=== PATIENT | male | born 1970 | race Caucasian/White ===

== ENCOUNTER 2020-06-28 11:22 | Observation (INO) | payer OTHER ==
[2020-06-28] MEDS ORDERED: ASPIRIN 81 MG PO STA (11:49)
--- NOTE | 2020-06-28 11:52 | ED ---
General Adult HPI - General Chief complaint: Chest Pain Stated complaint: Chest Pain Time Seen by Provider: 06/28/20 11:38 Source: patient, RN notes reviewed Mode of arrival: EMS Limitations: no limitations - History of Present Illness Initial comments: Patient is a pleasant 50-year-old male presenting to the emergency Department with complaints of chest discomfort. Incident occurred prior to arrival at around 15 minutes. Discomfort felt like pressure or sharp with some radiation from left sternal the right sternal. No back involvement. No associated dyspnea, nausea, or diaphoresis. Patient does have history of cocaine abuse and recently relapsed. Patient is currently in rehab and last used was around a week or more ago. Patient does have history of similar chest discomfort previously approximately 3 or 4 times however has never been evaluated for - Related Data Home Medications Medication Instructions Recorded Confirmed Acetaminophen [Tylenol 8 Hour] 650 mg PO Q4H PRN MDD 6 TABS 06/28/20 06/28/20 Calcium/Mag/Zinc 2 tab PO TID PRN 06/28/20 06/28/20 Chlorpheniramine Maleate 4 mg PO Q4H PRN 06/28/20 06/28/20 [Chlor-Trimeton] Famotidine [Pepcid] 20 mg PO DAILY@0600 06/28/20 06/28/20 Ibuprofen [Motrin] 600 mg PO Q6H PRN 06/28/20 06/28/20 Levothyroxine Sodium [Synthroid] 125 mcg PO DAILY@0600 06/28/20 06/28/20 Mirtazapine [Remeron] 30 mg PO HS 06/28/20 06/28/20 Multivitamins, Thera [Multivitamin 1 tab PO DAILY@0600 06/28/20 06/28/20 (formulary)] Mylanta 30 ml PO Q4H PRN 06/28/20 06/28/20 OLANZapine [ZyPREXA] 5 mg PO W/SUPPER 06/28/20 06/28/20 Thiamine [Vitamin B-1] 100 mg PO DAILY@0600 06/28/20 06/28/20 traZODone HCL [Desyrel] 50 - 150 mg PO HS 06/28/20 06/28/20 Allergies Allergy/AdvReac Type Severity Reaction Status Date / Time No Known Allergies Allergy Verified 06/28/20 13:01 Review of Systems ROS Statement: Those systems with pertinent positive or pertinent negative responses have been documented in the HPI. ROS Other: All systems not noted in ROS Statement are negative. Constitutional: Denies: fever Eyes: Denies: eye pain ENT: Denies: ear pain Respiratory: Denies: cough Cardiovascular: Reports: as per HPI, chest pain Endocrine: Denies: fatigue Gastrointestinal: Denies: abdominal pain Genitourinary: Denies: urgency Musculoskeletal: Denies: back pain Skin: Denies: rash Neurological: Denies: weakness Past Medical History Past Medical History: GERD/Reflux, Thyroid Disorder History of Any Multi-Drug Resistant Organisms: None Reported Past Surgical History: Cholecystectomy, Hernia Repair Past Psychological History: Anxiety, Bipolar, Depression Smoking Status: Current every day smoker Past Alcohol Use History: None Reported Past Drug Use History: Cocaine General Exam Limitations: no limitations General appearance: alert, in no apparent distress Head exam: Present: normocephalic Eye exam: Present: normal appearance Neck exam: Present: normal inspection Respiratory exam: Present: normal lung sounds bilaterally. Absent: chest wall tenderness Cardiovascular Exam: Present: regular rate, normal rhythm Expanded Peripheral pulses: 2+: Radial (R), Radial (L), Dorsalis Pedis (R), Dorsalis Pedis (L) GI/Abdominal exam: Present: soft. Absent: tenderness Extremities exam: Present: normal inspection. Absent: pedal edema, calf tenderness Neurological exam: Present: alert Psychiatric exam: Present: normal affect, normal mood Skin exam: Present: normal color Course Vital Signs 06/28/20 06/28/20 11:26 13:10 Temperature 98.4 F Pulse Rate 64 65 Respiratory 18 20 Rate Blood Pressure 105/79 107/69 O2 Sat by Pulse 100 99 Oximetry EKG Findings - EKG Comments: EKG Findings:: Normal sinus rhythm with rate of 67. MN 170. QRS 84. QT 402. QTC 424. Normal axis. Normal QRS. No acute ST change. Medical Decision Making - Medical Decision Making Patient reevaluated and resting comfortably in bed. Patient remained symptom free at this time. Patient updated on results and plan. Dr. Land has been paged for admission, covering for hospital call. - Lab Data Result diagrams: 06/28/20 11:54 06/28/20 11:54 Lab Results 06/28/20 06/28/20 06/28/20 Range/Units 11:54 11:54 11:54 WBC 8.8 (3.8-10.6) k/uL RBC 4.39 (4.30-5.90) m/uL Hgb 14.3 (13.0-17.5) gm/dL Hct 41.4 (39.0-53.0) % MCV 94.4 (80.0-100.0) fL MCH 32.7 (25.0-35.0) pg MCHC 34.6 (31.0-37.0) g/dL RDW 12.7 (11.5-15.5) % Plt Count 196 (150-450) k/uL MPV 8.1 Neutrophils % 67 % Lymphocytes % 22 % Monocytes % 7 % Eosinophils % 2 % Basophils % 1 % Neutrophils # 5.9 (1.3-7.7) k/uL Lymphocytes # 1.9 (1.0-4.8) k/uL Monocytes # 0.6 (0-1.0) k/uL Eosinophils # 0.2 (0-0.7) k/uL Basophils # 0.1 (0-0.2) k/uL PT 10.7 (9.0-12.0) sec INR 1.0 (<1.2) APTT 23.7 (22.0-30.0) sec D-Dimer <0.17 (<0.60) mg/L FEU Sodium 135 L (137-145) mmol/L Potassium 4.6 (3.5-5.1) mmol/L Chloride 105 (98-107) mmol/L Carbon Dioxide 27 (22-30) mmol/L Anion Gap 3 mmol/L BUN 11 (9-20) mg/dL Creatinine 0.88 (0.66-1.25) mg/dL Est GFR (CKD-EPI)AfAm >90 (>60 ml/min/1.73 sqM) Est GFR (CKD-EPI)NonAf >90 (>60 ml/min/1.73 sqM) Glucose 83 (74-99) mg/dL Calcium 9.2 (8.4-10.2) mg/dL Magnesium 2.0 (1.6-2.3) mg/dL Total Bilirubin 0.4 (0.2-1.3) mg/dL AST 35 (17-59) U/L ALT 33 (4-49) U/L Alkaline Phosphatase 32 L (38-126) U/L Troponin I (0.000-0.034) ng/mL Total Protein 6.3 (6.3-8.2) g/dL Albumin 3.7 (3.5-5.0) g/dL 06/28/20 Range/Units 11:54 WBC (3.8-10.6) k/uL RBC (4.30-5.90) m/uL Hgb (13.0-17.5) gm/dL Hct (39.0-53.0) % MCV (80.0-100.0) fL MCH (25.0-35.0) pg MCHC (31.0-37.0) g/dL RDW (11.5-15.5) % Plt Count (150-450) k/uL MPV Neutrophils % % Lymphocytes % % Monocytes % % Eosinophils % % Basophils % % Neutrophils # (1.3-7.7) k/uL Lymphocytes # (1.0-4.8) k/uL Monocytes # (0-1.0) k/uL Eosinophils # (0-0.7) k/uL Basophils # (0-0.2) k/uL PT (9.0-12.0) sec INR (<1.2) APTT (22.0-30.0) sec D-Dimer (<0.60) mg/L FEU Sodium (137-145) mmol/L Potassium (3.5-5.1) mmol/L Chloride (98-107) mmol/L Carbon Dioxide (22-30) mmol/L Anion Gap mmol/L BUN (9-20) mg/dL Creatinine (0.66-1.25) mg/dL Est GFR (CKD-EPI)AfAm (>60 ml/min/1.73 sqM) Est GFR (CKD-EPI)NonAf (>60 ml/min/1.73 sqM) Glucose (74-99) mg/dL Calcium (8.4-10.2) mg/dL Magnesium (1.6-2.3) mg/dL Total Bilirubin (0.2-1.3) mg/dL AST (17-59) U/L ALT (4-49) U/L Alkaline Phosphatase (38-126) U/L Troponin I <0.012 (0.000-0.034) ng/mL Total Protein (6.3-8.2) g/dL Albumin (3.5-5.0) g/dL - Radiology Data Radiology results: image reviewed (Chest x-ray shows no acute process) Disposition Clinical Impression: Chest pain Disposition: ADMITTED IP TO THIS HOSP Is patient prescribed a controlled substance at d/c from ED?: No Referrals: None,Stated [REFERRING] - 1-2 days Decision Time: 13:58
[2020-06-28] MEDS: SODIUM CHLORIDE 0.9% 1,000 ML IV STA ×2 (11:59→16:12)
[2020-06-28 12:16] LABS: Basophils # (A) 0.1 k/uL (0-0.2); Basophils % (A) 1 %; Eosinophils # (A) 0.2 k/uL (0-0.7); Eosinophils % (A) 2 %; HCT 41.4 % (39.0-53.0); HGB 14.3 gm/dL (13.0-17.5); Lymphocytes # (A) 1.9 k/uL (1.0-4.8); Lymphocytes % (A) 22 %; MCH 32.7 pg (25.0-35.0); MCHC 34.6 g/dL (31.0-37.0); MCV 94.4 fL (80.0-100.0); Mean Platelet Volume 8.1; Monocytes # (A) 0.6 k/uL (0-1.0); Monocytes % (A) 7 %; Neutrophils # (A) 5.9 k/uL (1.3-7.7); Neutrophils % (A) 67 %; Platelet Count 196 k/uL (150-450); RBC 4.39 m/uL (4.30-5.90); RDW 12.7 % (11.5-15.5); WBC 8.8 k/uL (3.8-10.6)
--- NOTE | 2020-06-28 12:23 | XR ---
EXAMINATION TYPE: XR chest 2V DATE OF EXAM: 06/28/2020 COMPARISON: None HISTORY: 50-year-old male chest pain TECHNIQUE: PA and lateral views FINDINGS: The cardiomediastinal silhouette, aorta, and pulmonary vasculature are within normal limits. Lungs an d pleural spaces are clear. IMPRESSION: No acute cardiopulmonary process.
[2020-06-28 12:28] LABS: D-Dimer <0.17 mg/L FEU (<0.60); Partial Thromboplastin Time 23.7 sec (22.0-30.0); Prothrombin Time 10.7 sec (9.0-12.0)
[2020-06-28 12:31] LABS: ALT 33 U/L (4-49); AST 35 U/L (17-59); African American GFR (CKD) >90 (>60 ml/min/1.73 sqM); Albumin 3.7 g/dL (3.5-5.0); Alkaline Phosphatase 32 U/L (38-126); Anion Gap 3 mmol/L; Blood Urea Nitrogen 11 mg/dL (9-20); Calcium 9.2 mg/dL (8.4-10.2); Carbon Dioxide 27 mmol/L (22-30); Chloride 105 mmol/L (98-107); Glucose 83 mg/dL (74-99); Non-African American GFR(CKD) >90 (>60 ml/min/1.73 sqM); Potassium 4.6 mmol/L (3.5-5.1); Sodium 135 mmol/L (137-145); Total Bilirubin 0.4 mg/dL (0.2-1.3); Total Protein 6.3 g/dL (6.3-8.2)
[2020-06-28] MEDS ORDERED: NITROGLYCERIN SL TABS 0.4 MG TAB SUBLINGUAL PRN (13:59)
[2020-06-28] MEDS ORDERED: ACETAMINOPHEN TAB 325 MG TAB PO PRN (16:07)
[2020-06-28] MEDS ORDERED: MYLANTA PO PRN (16:07)
[2020-06-28] MEDS ORDERED: ZINC PO PRN (16:07)
[2020-06-28] MEDS ORDERED: CALCIUM PO PRN (16:07)
[2020-06-28] MEDS ORDERED: MAG PO PRN (16:07)
[2020-06-28] MEDS ORDERED: IBUPROFEN 600 MG TAB PO PRN (16:07)
[2020-06-28] MEDS: NITROGLYCERIN OINT 1 INCH/GM PACKET TOPICAL SCH ×2 (17:00→23:42)
[2020-06-28] MEDS: NICOTINE 14MG/24HR PATCH TRANSDERM SCH (17:00)
[2020-06-28] MEDS: PANTOPRAZOLE 40 MG TABLET PO SCH (17:00)
[2020-06-28] MEDS ORDERED: OLANZapine 5 MG TAB PO SCH (17:30)
[2020-06-28] MEDS ORDERED: MORPHINE SULFATE 2 MG/ML SYRINGE IVP PRN (19:49)
[2020-06-28] MEDS ORDERED: MIRTAZAPINE 15 MG TAB PO SCH (21:00)
[2020-06-28] MEDS ORDERED: traZODone HCL 50 MG TAB PO SCH (21:00)
[2020-06-28] MEDS: FAMOTIDINE 20 MG TAB PO SCH (22:10)
--- NOTE | 2020-06-28 22:45 | P.HPIM ---
History of Present Illness H&P Date: 06/28/20 Chief Complaint: Chest Pain Patient is a 50-year-old male with known history of GERD, hypothyroidism, hepatitis C, anxiety/depression bipolar disorder and currently everyday smoker and cocaine use presents to ER with the complaints of chest discomfort started around 10 AM this morning lasted about 15 minutes. Patient was at [facility] and is undergoing rehab for cocaine abuse. Chest pain is mainly in the lower sternal region and felt like knife stuck on his chest. No associated nausea vomiting. No radiation to left shoulder or to the back. Denies any headache or dizziness or lightheadedness. Patient states that he started having sweating. Patient states that he did have similar chest pain previously but did not seek medical attention. Patient states that he did have a history of gastric ulcer.. No fever no chills. No cough or sputum production. No nausea vomiting abdominal pain or diarrhea. No leg swelling. Denied any exertional short of breath.. Currently denies any chest pain. Chest x-ray showed no acute cardiopulmonary process EKG showed normal sinus rhythm. Laboratory data showed WBC 8.8 hemoglobin 14.3 and platelets 196 D-dimer 0.17 liver enzymes are not elevated troponin x3 - Coronavirus PCR not detected. Review of Systems Constitutional: Patient denies any fever or chills . No generalized weakness or weight loss. Abdomen: Patient denied nausea vomiting and diarrhea and abdominal pain. Cardiovascular: Patient denies any chest pain or short of breath no palpitations. Respiratory: patient denied any cough or sputum production. No shortness of breath Neurologic: Patient denied any numbness or tingling headache. Musculoskeletal: Patient denies any complaints of joint swelling or deformity. Skin: Negative Psychiatric: Negative Endocrine: No heat or cold intolerance. No recent weight gain. Genitourinary: No dysuria or hematuria. All other 14 point ROS negative except the above Past Medical History Past Medical History: GERD/Reflux, Thyroid Disorder Additional Past Medical History / Comment(s): hep C History of Any Multi-Drug Resistant Organisms: None Reported Past Surgical History: Cholecystectomy, Hernia Repair Past Psychological History: Anxiety, Bipolar, Depression Smoking Status: Current every day smoker Past Alcohol Use History: None Reported Past Drug Use History: Cocaine Medications and Allergies Home Medications Medication Instructions Recorded Confirmed Type Acetaminophen [Tylenol 8 Hour] 650 mg PO Q4H PRN MDD 6 TABS 06/28/20 06/28/20 History Calcium/Mag/Zinc 2 tab PO TID PRN 06/28/20 06/28/20 History Chlorpheniramine Maleate 4 mg PO Q4H PRN 06/28/20 06/28/20 History [Chlor-Trimeton] Famotidine [Pepcid] 20 mg PO DAILY@0600 06/28/20 06/28/20 History Ibuprofen [Motrin] 600 mg PO Q6H PRN 06/28/20 06/28/20 History Levothyroxine Sodium [Synthroid] 125 mcg PO DAILY@0600 06/28/20 06/28/20 History Mirtazapine [Remeron] 30 mg PO HS 06/28/20 06/28/20 History Multivitamins, Thera [Multivitamin 1 tab PO DAILY@0600 06/28/20 06/28/20 History (formulary)] Mylanta 30 ml PO Q4H PRN 06/28/20 06/28/20 History OLANZapine [ZyPREXA] 5 mg PO W/SUPPER 06/28/20 06/28/20 History Thiamine [Vitamin B-1] 100 mg PO DAILY@0600 06/28/20 06/28/20 History traZODone HCL [Desyrel] 50 - 150 mg PO HS 06/28/20 06/28/20 History Allergies Allergy/AdvReac Type Severity Reaction Status Date / Time No Known Allergies Allergy Verified 06/28/20 13:01 Physical Exam Vitals: Vital Signs Temp Pulse Pulse Resp BP BP Pulse Ox 06/28/20 15:50 97.9 F 70 18 125/77 100 06/28/20 15:22 72 20 113/70 99 06/28/20 13:10 65 20 107/69 99 06/28/20 11:26 98.4 F 64 18 105/79 100 Intake and Output 06/28/20 06/28/20 06/28/20 06:59 14:59 22:59 Other: Weight 80.739 kg 80.739 kg PHYSICAL EXAMINATION: Patient is lying in the bed comfortably, no acute distress, awake alert and oriented.. HEENT: Normocephalic. Neck is supple. Pupils reactive. Nostrils clear. Oral cavity is moist. Ears reveal no drainage. Neck reveals no JVD, carotid bruits, or thyromegaly. CHEST EXAMINATION: Trachea is central. Symmetrical expansion. Lung goldsmith clear to auscultation and percussion. CARDIAC: Normal S1, S2 with no gallops. No murmurs ABDOMEN: Soft. Bowel sounds normal. No organomegaly. No abdominal bruits. Extremities: reveal no edema. No clubbing or cyanosis Neurologically awake, alert, oriented x3 with well-coordinated movements. No focal deficits noted Skin: No rash or skin lesions. Psychiatric: Coperative. Nonsuicidal Musculoskeletal: No joint swelling or deformity. Normal range of motion. Results CBC & Chem 7: 06/28/20 11:54 06/28/20 11:54 Labs: Abnormal Lab Results - Last 24 Hours (Table) 06/28/20 Range/Units 11:54 Sodium 135 L (137-145) mmol/L Alkaline Phosphatase 32 L (38-126) U/L Thrombosis Risk Factor Assmnt - DVT/VTE Prophylaxis DVT/VTE Prophylaxis: Pharmacologic Prophylaxis ordered - Choose All That Apply Any of the Below Risk Factors Present?: Yes Each Factor Represents 1 point: Age 41-60 years Other Risk Factors: No Thrombosis Risk Factor Assessment Total Risk Factor Score: 1 Thrombosis Risk Factor Assessment Level: Low Risk Assessment and Plan Assessment: Atypical chest pain. Rule out ACS. Possible gastritis Cocaine abuse and currently at [facility] Hypothyroidism GERD Anxiety/depression, bipolar disorder Currently everyday smoker DVT prophylaxis with heparin subcu Plan: Patient will be continued on telemetry monitoring. Continue with PPI twice daily. His initial EKG and troponin x1 -. Cardiology was consulted. Continue with aspirin and lipid profile was ordered. Follow-up closely and further recommendations based on clinical course. Monitor for withdrawal symptoms. Time with Patient: Greater than 30
[2020-06-28] MEDS: HEPARIN SODIUM,PORCINE/PF 5,000 UNIT/0.5 ML SYRINGE SQ SCH (23:42)
[2020-06-29] MEDS: NITROGLYCERIN OINT 1 INCH/GM PACKET TOPICAL SCH ×2 (04:18→11:28)
[2020-06-29 04:45] LABS: Cholesterol 167 mg/dL (<200); HDL Cholesterol 44 mg/dL (40-60); LDL Cholesterol,Calculated 99 mg/dL (0-99); Triglycerides 118 mg/dL (<150)
[2020-06-29] MEDS ORDERED: LEVOTHYROXINE 125 MCG TAB PO SCH (06:30)
[2020-06-29] MEDS: FAMOTIDINE 20 MG TAB PO SCH (07:58)
[2020-06-29] MEDS: PANTOPRAZOLE 40 MG TABLET PO SCH (07:58)
[2020-06-29] MEDS: NICOTINE 14MG/24HR PATCH TRANSDERM SCH (07:58)
[2020-06-29] MEDS: HEPARIN SODIUM,PORCINE/PF 5,000 UNIT/0.5 ML SYRINGE SQ SCH (07:59)
[2020-06-29 08:11] VITALS: BP 129/77; PULSE 69; RESP 18; TEMP 97.8
[2020-06-29] MEDS ORDERED: THIAMINE 100 MG TAB PO SCH (09:00)
[2020-06-29] MEDS ORDERED: MULTIVITAMINS, THERA 1 EACH TAB PO SCH (09:00)
[2020-06-29] MEDS ORDERED: ASPIRIN 325 MG TAB PO SCH (09:00)
--- NOTE | 2020-06-29 13:10 | P.CRDCN ---
History of Present Illness History of present illness: HISTORY OF PRESENTING ILLNESS Patient is a 50-year-old male with history of GERD, hypothyroidism, hepatitis C, anxiety, depression, cocaine abuse who presents from [facility] facility secondary to episodes of epigastric pain. Patient states he had epigastric discomfort which felt like a sharp sensation as well as some burning sensation which lasted approximately 15 minutes. He had 2 episodes and therefore was transferred to ER for further evaluation. He believes his blood pressure is mildly elevated and therefore he was given Catapres at [facility]. He states that since that time he has been feeling well. He does have a history of a gastric ulcer previously. He states the pain was mostly epigastric and radiated somewhat into his lower chest. He denies any associated shortness breath, nausea, diaphoresis. Workup included d-dimer which was 2.17, troponins which were normal 3, white blood cell count 8.8, hemoglobin 14.3. EKG showed normal sinus without any significant ischemic changes. Patient states he is feeling well and walking about the hallway, anxious to go home. He admits he has been in rehab for approximately a week and a half and has not used cocaine in the past few weeks. He has not had prior cardiology workup however would like to follow-up with a doctor closer to [place] where he lives. REVIEW OF SYSTEMS At the time of my exam: CONSTITUTIONAL: Denies fever or chills. CARDIOVASCULAR: +chest pain, no shortness of breath, orthopnea, PND or palpitations. RESPIRATORY: Denies cough. GASTROINTESTINAL: Denies abdominal pain, diarrhea, constipation, nausea or vomiting. MUSCULOSKELETAL: Denies myalgias. NEUROLOGIC: Denies numbness, tingling or weakness. ENDOCRINE: Denies fatigue, weight change, polydipsia or polyurina. GENITOURINARY: Denies burning, hematuria or urgency with micturation. HEMATOLOGIC: Denies history of anemia or bleeding. PHYSICAL EXAMINATION Vital signs reviewed. CONSTITUTIONAL: No apparent distress. HEENT: Head is normocephalic. Pupils are equal, round. Sclerae anicteric. Mucous membranes of the mouth are moist. No JVD. No carotid bruit. CHEST EXAMINATION: Lungs are clear to auscultation. No chest wall tenderness is noted on palpation or with deep breathing. HEART EXAMINATION: Regular rate and rhythm. S1, S2 heard. No murmurs, gallops or rub. ABDOMEN: Soft, nontender. Positive bowel sounds. EXTREMITIES: 2+ peripheral pulses, no lower extremity edema and no calf tenderness. NEUROLOGIC EXAMINATION: Patient is awake, alert and oriented x3. ASSESSMENT 1. Atypical epigastric, chest pain lasting for 15 minutes. Workup including troponin, EKG, d-dimer unrevealing. Does not appear consistent with acute coronary syndrome, or cardiac etiology. Suspect may be a GI source area 2. History of cocaine abuse 3. Hepatitis C PLAN Patient's chest pain appears atypical and troponins normal 3 with normal EKG without any ischemic changes. No further episodes over the last 24 hours and patient states he feels well walking on the halls, anxious to go home. Chest pain does not appear cardiac in nature and patient is stable for discharge home. Discussed cocaine cessation. Patient may be discharged with outpatient follow- up in 1 week. Past Medical History Past Medical History: GERD/Reflux, Thyroid Disorder Additional Past Medical History / Comment(s): hep C History of Any Multi-Drug Resistant Organisms: None Reported Past Surgical History: Cholecystectomy, Hernia Repair Past Psychological History: Anxiety, Bipolar, Depression Smoking Status: Current every day smoker Past Alcohol Use History: None Reported Past Drug Use History: Cocaine Medications and Allergies Home Medications Medication Instructions Recorded Confirmed Type Acetaminophen [Tylenol 8 Hour] 650 mg PO Q4H PRN MDD 6 TABS 06/28/20 06/28/20 History Calcium/Mag/Zinc 2 tab PO TID PRN 06/28/20 06/28/20 History Chlorpheniramine Maleate 4 mg PO Q4H PRN 06/28/20 06/28/20 History [Chlor-Trimeton] Levothyroxine Sodium [Synthroid] 125 mcg PO DAILY@0600 06/28/20 06/28/20 History Mirtazapine [Remeron] 30 mg PO HS 06/28/20 06/28/20 History Multivitamins, Thera [Multivitamin 1 tab PO DAILY@0600 06/28/20 06/28/20 History (formulary)] Mylanta 30 ml PO Q4H PRN 06/28/20 06/28/20 History OLANZapine [ZyPREXA] 5 mg PO W/SUPPER 06/28/20 06/28/20 History Thiamine [Vitamin B-1] 100 mg PO DAILY@0600 06/28/20 06/28/20 History traZODone HCL [Desyrel] 50 - 150 mg PO HS 06/28/20 06/28/20 History Pantoprazole [Protonix] 40 mg PO [id number] #30 tablet. 06/29/20 Rx Allergies Allergy/AdvReac Type Severity Reaction Status Date / Time No Known Allergies Allergy Verified 06/28/20 13:01 Physical Exam Vitals: Vital Signs Temp Pulse Pulse Resp BP BP Pulse Ox 06/29/20 07:00 97.8 F 69 18 129/77 98 06/29/20 02:00 98.4 F 66 16 134/79 99 06/28/20 19:32 98.0 F 75 16 146/77 98 06/28/20 19:10 75 16 06/28/20 15:50 97.9 F 70 18 125/77 100 06/28/20 15:22 72 20 113/70 99 06/28/20 13:10 65 20 107/69 99 Intake and Output 06/28/20 06/29/20 06/29/20 22:59 06:59 14:59 Other: Voiding Method Toilet Toilet Toilet # Voids 2 2 Weight 80.739 kg Results 06/28/20 11:54 06/28/20 11:54 Cardiac Enzymes 06/28/20 06/28/20 06/28/20 Range/Units 11:54 16:13 19:13 Troponin I <0.012 <0.012 <0.012 (0.000-0.034) ng/mL Lipids 06/28/20 Range/Units 11:54 Triglycerides 118 (<150) mg/dL Cholesterol 167 (<200) mg/dL HDL Cholesterol 44 (40-60) mg/dL Current Medications Generic Name Dose Route Start Last Admin Trade Name Freq PRN Reason Stop Dose Admin Acetaminophen 650 mg 06/28/20 16:07 Acetaminophen Tab 325 Mg Tab PO Q4H PRN Pain or Fever > 100.5 Aspirin 325 mg 06/29/20 09:00 06/29/20 07:58 Aspirin 325 Mg Tab PO 325 mg DAILY ALEX Administration Famotidine 20 mg 06/28/20 21:00 06/29/20 07:58 Famotidine 20 Mg Tab PO 06/30/20 21:01 20 mg BID ALEX Administration Heparin Sodium (Porcine) 5,000 unit 06/29/20 00:00 06/29/20 07:59 Heparin Sodium,Porcine/Pf 5,000 Unit/0.5 Ml Syringe SQ 5,000 unit Q8HR ALEX Administration Levothyroxine Sodium 125 mcg 06/29/20 06:30 06/29/20 05:54 Levothyroxine 125 Mcg Tab PO 125 mcg DAILY@0630 ALEX Administration Mirtazapine 30 mg 06/28/20 21:00 06/28/20 22:10 Mirtazapine 15 Mg Tab PO 30 mg HS ALEX Administration Morphine Sulfate 2 mg 06/28/20 19:49 Morphine Sulfate 2 Mg/Ml Syringe IVP Q6H PRN Pain/Discomfort Multivitamins 1 each 06/29/20 09:00 06/29/20 07:58 Multivitamins, Thera 1 Each Tab PO 1 each DAILY@0900 [facility] Administration Nicotine 1 patch 06/28/20 16:15 06/29/20 07:58 Nicotine 14mg/24hr Patch TRANSDERM 1 patch DAILY ALEX Administration Nitroglycerin 0.4 mg 06/28/20 13:59 Nitroglycerin Sl Tabs 0.4 Mg Tab SUBLINGUAL Q5M PRN Chest Pain Nitroglycerin 1 inch 06/28/20 18:00 06/29/20 11:28 Nitroglycerin Oint 1 Inch/Gm Packet TOPICAL Not Given Q6HR [facility] Non-Formulary Medication 30 ml 06/28/20 16:07 Mylanta PO Q4H PRN GERD Olanzapine 5 mg 06/28/20 17:30 06/28/20 17:00 Olanzapine 5 Mg Tab PO 5 mg W/SUPPER ALEX Administration Pantoprazole Sodium 40 mg 06/28/20 17:30 06/29/20 07:58 Pantoprazole 40 Mg Tablet PO 40 mg AC-BID ALEX Administration Sodium Chloride 10 ml 06/28/20 21:00 06/29/20 07:59 Sodium Chloride 0.9% Flush 10 Ml Syringe IV 10 ml BID ALEX Administration Thiamine HCl 100 mg 06/29/20 09:00 06/29/20 07:59 Thiamine 100 Mg Tab PO 100 mg DAILY@0900 [facility] Administration Intake and Output 06/28/20 06/29/20 06/29/20 22:59 06:59 14:59 Other: Voiding Method Toilet Toilet Toilet # Voids 2 2 Weight 80.739 kg 06/28/20 11:54 06/28/20 11:54
== END 2020-06-29 14:05 | disposition home or self-care (01) ==
LOC: EC 11:22 → 6NMEDSUR 13:59
PROVIDERS: ADMIT Internal Medicine; ATTEND Internal Medicine
DX: R07.89 Other chest pain (principal); R10.13 Epigastric pain; F14.10 Cocaine abuse, uncomplicated; K21.9 Gastro-esophageal reflux disease without esophagitis; E03.9 Hypothyroidism, unspecified; F31.9 Bipolar disorder, unspecified; F41.9 Anxiety disorder, unspecified; F17.200 Nicotine dependence, unspecified, uncomplicated; B19.20 Unspecified viral hepatitis C without hepatic coma; Z79.890 Hormone replacement therapy; Z79.899 Other long term (current) drug therapy; Z90.49 Acquired absence of other specified parts of digestive tract; Z98.890 Other specified postprocedural states; Z87.11 Personal history of peptic ulcer disease; Z20.822 Contact with and (suspected) exposure to COVID-19
CPT/HCPCS: 96361 ×3; 96372 ×2; 93005 ×2; 96360; 99285; 36415; 85379; 80061; 80053; 83735; 84484; 85025; 85610; 85730; 87635; 71046; G0378 ×2; S4990 ×2; J1644 ×2